=== PATIENT | female | born 1990 | race African-American/Black ===

== ENCOUNTER 2024-08-16 20:21 | Emergency (ER) | payer MEDICAID ==
[~2024-08-16] VITALS: Ht 162.6 cm; Wt 64.0 kg
[2024-08-16 20:32] VITALS: BP 131/82; PULSE 78; RESP 18; TEMP 98.4; O2SAT 100; O2SAT 99
[2024-08-17 01:40] LABS: CLARITY URINE TURBID (CLEAR); COLOR URINE YELLOW (YELLOW); GLUCOSE URINE NEGATIVE (NEGATIVE); KETONES URINE TRACE (NEGATIVE); LEUKOCYTE ESTERASE URINE 3+ (NEGATIVE); NITRITE URINE NEGATIVE (NEGATIVE); OCCULT BLOOD URINE 1+ (NEGATIVE); PROTEIN URINE 1+ (NEGATIVE); SPECIFIC GRAVITY URINE 1.026 (1.005-1.030)
[2024-08-17 01:43] LABS: BACTERIA URINE 1+; SQUAMOUS EPITHELIAL CELL URINE 1+ /lpf (RARE/1+); WBC URINE 25-50 /hpf (0-2)
== END 2024-08-17 02:39 | disposition left against medical advice (07) ==
LOC: ER 20:21
DX: N89.8 Other specified noninflammatory disorders of vagina (principal)
CPT/HCPCS: 81003; 99283

== ENCOUNTER 2024-09-22 20:00 | Emergency (ER) | payer MEDICAID ==
[~2024-09-22] VITALS: Ht 162.6 cm; Wt 66.0 kg
[2024-09-22 23:34] LABS: BASOPHILS % 0.9 % (0.0-2.0); EOSINOPHILS % 0.2 % (0.0-5.0); HEMATOCRIT. 37.1 % (36.0-48.0); HEMOGLOBIN. 12.4 g/dL (12.0-16.0); LYMPHOCYTES % 21.2 % (20.0-50.0); MEAN CORPUSCULAR HEMOGLOBIN 31.4 pg (28.0-32.0); MEAN CORPUSCULAR HGB CONC 33.4 g/dL (31.0-37.0); MEAN PLATELET VOLUME 7.5 fl (7.4-10.4); MONOCYTES % 10.8 % (2.0-8.0); NEUTROPHILS % 66.9 % (40.0-76.0); PLATELET 261 x1000/uL (130-400); RED BLOOD CELL COUNT 3.95 mill/uL (4.2-5.4)
[2024-09-22 23:42] LABS: CHLORIDE 102 mEq/L (98-107); POTASSIUM 3.6 mEq/L (3.5-5.1); SODIUM 133 mEq/L (136-145)
[2024-09-22 23:43] LABS: CARBON DIOXIDE 22 mEq/L (21-32)
[2024-09-22 23:44] LABS: CALCIUM 9.7 mg/dL (8.7-10.4)
[2024-09-22 23:48] LABS: CREATININE 0.6 mg/dL (0.6-1.0)
[2024-09-22 23:49] LABS: GLUCOSE 118 mg/dL (70-105); UREA NITROGEN BLOOD 8 mg/dL (9-23)
[2024-09-22 23:50] LABS: ACETAMINOPHEN < 2 ug/mL (10-30)
[2024-09-22 23:53] LABS: ETHANOL BLOOD < 10 mg/dL (<10)
[2024-09-23 00:10] LABS: HCG SCREEN NEGATIVE
[2024-09-23] MEDS: LORAZEPAM 2MG/ML INJ IM NR (00:48)
[2024-09-23] MEDS: DIPHENHYDRAMINE 50MG/ML VIAL IM NR (00:48)
[2024-09-23] MEDS: HALOPERIDOL LACTATE 5MG/ML VIAL IM NR (00:48)
[2024-09-23 02:21] LABS: *AMPHETAMINES SCREEN URINE PRESUMPTIVE POSITIVE (NEGATIVE); *BARBITURATES SCREEN URINE NEGATIVE (NEGATIVE); *BENZODIAZEPINES SCREEN URINE NEGATIVE (NEGATIVE); *COCAINE SCREEN URINE PRESUMPTIVE POSITIVE (NEGATIVE); CANNABINOID URINE SCREEN PRESUMPTIVE POSITIVE (NEGATIVE); ECSTASY MDMA SCREEN URINE CONF.TEST INDICATED (NEGATIVE); METHADONE URINE SCREEN NEGATIVE (NEGATIVE); OPIATES URINE SCREEN NEGATIVE (NEGATIVE); PHENCYCLIDINE URINE SCREEN NEGATIVE (NEGATIVE)
[2024-09-23 02:29] LABS: CLARITY URINE CLOUDY (CLEAR); COLOR URINE DARK YELLOW (YELLOW); GLUCOSE URINE NEGATIVE (NEGATIVE); KETONES URINE 2+ (NEGATIVE); LEUKOCYTE ESTERASE URINE 2+ (NEGATIVE); NITRITE URINE NEGATIVE (NEGATIVE); OCCULT BLOOD URINE TRACE (NEGATIVE); PROTEIN URINE 1+ (NEGATIVE); SPECIFIC GRAVITY URINE 1.032 (1.005-1.030)
[2024-09-23 02:30] VITALS: O2SAT 98
[2024-09-23 05:26] LABS: SQUAMOUS EPITHELIAL CELL URINE 1+ /lpf (RARE/1+)
[2024-09-23 05:27] LABS: WBC URINE 15-25 /hpf (0-2)
[2024-09-23 05:28] LABS: RBC URINE 0-2 /hpf (0-2)
[2024-09-23 05:29] LABS: BACTERIA URINE NONE SEEN
[2024-09-23 05:30] LABS: CALCIUM OXALATE CRYSTALS URINE 1+ /lpf
[2024-09-23] MEDS: CEFTRIAXONE SODIUM 500MG VIAL IM NR (06:39)
[2024-09-23] MEDS: LIDOCAINE HCL 1% 20ML VIAL INFIL NR (06:39)
[2024-09-23] MEDS: AZITHROMYCIN 500 MG TABLET PO NR (06:40)
[2024-09-23] MEDS: ONDANSETRON 4MG ODT PO ONE (06:40)
[2024-09-23 14:33] VITALS: TEMP 36.55848
[2024-09-23 15:14] VITALS: BP 104/68; PULSE 84; RESP 16; O2SAT 100
== END 2024-09-23 15:34 ==
LOC: ER 20:00
DX: R45.851 Suicidal ideations (principal); F15.10 Other stimulant abuse, uncomplicated; F41.9 Anxiety disorder, unspecified
CPT/HCPCS: 80048; 80307; 80329; 80320; 84703; 85025; 36415; 99291; 96372; Q0162; J0696; J1200; J1630; J3490; J2060; G0480